=== PATIENT | female | born 1945 | race Caucasian/White ===

== ENCOUNTER 2024-09-11 12:27 | Inpatient (IN) | payer MEDICARE, OTHER ==
[~2024-09-11] VITALS: Ht 157.5 cm; Wt 77.2 kg
[~2024-09-11 12:27] MED LIST: ACET-683 PO; AMLO1TAB24 PO; CALC600T61 PO; COLA100C5 PO; HEAL1TAB6 PO; OXYC-517 PO; PANT40TA29 PO; RAME8TAB2 PO; XARE10TA PO
[2024-09-11] MEDS ORDERED: MAALOX 30 ML SUSP *UDC PO PRN (13:10)
[2024-09-11] MEDS ORDERED: SIMETHICONE 80MG CHEW TAB PO PRN (13:10)
[2024-09-11] MEDS ORDERED: BISACODYL 10 MG SUPP PR PRN (13:10)
[2024-09-11] MEDS ORDERED: **hydrALAZINE HCL** 25 MG TAB PO PRN (13:10)
[2024-09-11] MEDS ORDERED: MOM 30 ML SUSPENSION UDC PO PRN (13:10)
[2024-09-11] MEDS ORDERED: BISACODYL 5 MG TAB PO PRN (13:10)
[2024-09-11] MEDS ORDERED: NS (Normal Saline) 0.9% 1,000 ML IV SCH (13:20)
[2024-09-11 14:45] VITALS: BP 141/65; TEMP 97.8; O2SAT 95
[2024-09-11] MEDS: BISACODYL 5 MG TAB PO ONE (17:12)
[2024-09-11 19:30] VITALS: BP 127/58; TEMP 98; O2SAT 95
[2024-09-11] MEDS: SENNA 8.6 MG TAB PO SCH (21:28)
[2024-09-11] MEDS: DOCUSATE SODIUM 100 MG CAPSULE PO SCH (21:28)
[2024-09-11] MEDS: PANTOPRAZOLE 40MG TAB PO SCH (21:28)
[2024-09-11] MEDS: ACETAMINOPHEN 500 MG TAB PO SCH (21:29)
[2024-09-12 03:55] VITALS: BP 149/72; TEMP 96.9; O2SAT 92
[2024-09-12 04:33] VITALS: BP 137/65; TEMP 97.5; O2SAT 93
[2024-09-12] MEDS: CALCIUM/VITAMIN D 500 MG TAB PO SCH (07:33)
[2024-09-12] MEDS: amLODIPine 5 MG TAB PO SCH (07:33)
[2024-09-12 07:36] LABS: BASO # 0.0 10^3/uL (0.0-0.2); BASO % 0.7 % (0.0-1.0); EOS # 0.1 10^3/uL (0.0-0.5); EOS % 5.2 % (0.0-3.0); LYMPH # 0.4 10^3/uL (1.5-5.0); LYMPH % 14.9 % (24.0-44.0); MONO # 0.2 10^3/uL (0.0-0.8); MONO % 6.0 % (2.0-8.0); NEUTROPHILS # 1.9 10^3/uL (1.5-8.5); NEUTROPHILS % 71.3 % (36.0-66.0); PLATELET COUNT, AUTOMATED 104 10^3/uL (150-450)
[2024-09-12 07:51] LABS: ALT/SGPT 33.0 U/L (7.0-40); AST/SGOT 45.0 U/L (<34); CALCIUM LEVEL 8.8 MG/DL (8.3-10.6); CARBON DIOXIDE LEVEL 26.0 MMOL/L (20-31); CHLORIDE LEVEL 104.0 MMOL/L (98-107); CREATININE FOR GFR 0.77 MG/DL (0.55-1.30); GLOMERULAR FILTRATION RATE 79.4 (>39); POTASSIUM SERUM 3.7 MMOL/L (3.5-5.1); SODIUM LEVEL 142.0 MMOL/L (136-145)
[2024-09-12] MEDS: FLUTICASONE PROPIONATE 0.05% NASAL SPRAY 16 GM NARES SCH (09:00)
[2024-09-12] MEDS ORDERED: RAMELTEON 8 MG TAB PO PRN (10:30)
[2024-09-12] MEDS ORDERED: FLUTICASONE PROPIONATE 0.05% NASAL SPRAY 16 GM NARES ONE (10:30)
[2024-09-12] MEDS: ONDANSETRON 4MG ORAL DISINTEGRATING TAB SL PRN (11:29)
[2024-09-12 12:00] VITALS: BP 134/64; TEMP 98.5; O2SAT 95
[2024-09-12] MEDS: RIVAROXABAN 10MG TAB PO SCH (17:04)
[2024-09-12 19:50] VITALS: BP 130/59; TEMP 97.2; O2SAT 97
[2024-09-13 04:00] VITALS: BP 146/66; TEMP 96.7; O2SAT 95
[2024-09-13 12:00] VITALS: BP 141/70; TEMP 96.4; O2SAT 95
[2024-09-13] MEDS ORDERED: PILL CUTTER 1 EACH XX PRN (15:25)
[2024-09-13 20:00] VITALS: BP 129/60; TEMP 97.3; O2SAT 97
[2024-09-14 04:00] VITALS: BP 130/60; TEMP 97; O2SAT 98
[2024-09-14 12:00] VITALS: BP 139/66; TEMP 97; O2SAT 96
[2024-09-14 20:00] VITALS: BP 153/69; TEMP 97.3; O2SAT 99
[2024-09-14 22:00] VITALS: BP 153/69; TEMP 97.3; O2SAT 99
[2024-09-15 04:00] VITALS: BP 153/72; TEMP 97.1; O2SAT 99
[2024-09-15 06:00] VITALS: BP 153/72; TEMP 97.1; O2SAT 99
[2024-09-15 12:05] VITALS: BP 136/65; TEMP 98; O2SAT 97
[2024-09-15 20:10] VITALS: BP 132/62; TEMP 97.8; O2SAT 98
[2024-09-15] MEDS: RAMELTEON 8 MG TAB PO PRN (21:27)
[2024-09-16 05:28] VITALS: BP 158/69; TEMP 97.9; O2SAT 96
[2024-09-16 12:00] VITALS: BP 147/65; TEMP 97.8; O2SAT 98
[2024-09-16 20:00] VITALS: BP 145/65; TEMP 97.1; O2SAT 93
[2024-09-17 04:00] VITALS: BP 144/65; TEMP 97.6; O2SAT 94
[2024-09-17 12:00] VITALS: BP 137/67; TEMP 97.9; O2SAT 95
[2024-09-17 20:00] VITALS: BP 136/65; TEMP 97.5; O2SAT 95
[2024-09-18 04:00] VITALS: BP 130/62; TEMP 97.2; O2SAT 97
[2024-09-18 12:03] VITALS: BP 124/60; TEMP 97.6; O2SAT 98
[2024-09-18 20:00] VITALS: BP 135/83; TEMP 97.6; O2SAT 95
[2024-09-19 04:00] VITALS: BP 123/60; TEMP 97.1; O2SAT 99
[2024-09-19 12:08] VITALS: BP 135/63; TEMP 98.3; O2SAT 97
[2024-09-19 20:00] VITALS: BP 150/60; TEMP 97.1; O2SAT 96
[2024-09-20 04:00] VITALS: BP 140/65; TEMP 97; O2SAT 97
[2024-09-20] MEDS ORDERED: XARE10TA PO ×2 (11:42→14:18)
[2024-09-20] MEDS ORDERED: PANT40TA29 PO (11:42)
[2024-09-20] MEDS ORDERED: FLUTISP NARES (11:42)
[2024-09-20] MEDS ORDERED: RAME8TAB2 PO (11:42)
[2024-09-20 12:16] VITALS: BP 131/63; TEMP 96.6; O2SAT 96
[2024-09-20] MEDS ORDERED: ELIQ2.5T PO (13:51)
[2024-09-20] MEDS ORDERED: ENOX40IN3 SC (13:55)
[2024-09-20] MEDS: RIVAROXABAN 10MG TAB PO SCH (17:17)
[2024-09-20 20:08] VITALS: BP 129/61; TEMP 96.9; O2SAT 97
[2024-09-20] MEDS ORDERED: ENOXAPARIN 40 MG/0.4 ML SYRINGE (J1650 PER 10MG) SC SCH (21:00)
[2024-09-21 03:50] VITALS: BP 134/64; TEMP 97.1; O2SAT 94
[2024-09-21 07:38] VITALS: BP 128/60
== END 2024-09-21 10:35 | disposition home or self-care (01) | DRG 560 ==
LOC: M PM&R 15:11
PROVIDERS: ADMIT Physical Medicine & Rehabilitation; ATTEND Physical Medicine & Rehabilitation
DX: S82.141D Displaced bicondylar fracture of right tibia, subsequent encounter for closed fracture with routine healing (principal); C85.90 Non-Hodgkin lymphoma, unspecified, unspecified site; D62 Acute posthemorrhagic anemia; S42.202D Unspecified fracture of upper end of left humerus, subsequent encounter for fracture with routine healing; K21.9 Gastro-esophageal reflux disease without esophagitis; D69.6 Thrombocytopenia, unspecified; I10 Essential (primary) hypertension; G47.00 Insomnia, unspecified; R09.81 Nasal congestion; G47.30 Sleep apnea, unspecified; K59.00 Constipation, unspecified; Z74.1 Need for assistance with personal care; Z74.09 Other reduced mobility; Z79.899 Other long term (current) drug therapy; Z88.5 Allergy status to narcotic agent

== ENCOUNTER → 2024-09-29 | Outpatient (CLI) | payer MEDICARE, OTHER ==
[~2024-09-29] MED LIST changes: +ELIQ2.5T PO; +ENOX40IN3 SC; +FLUTISP NARES
== END ==
LOC: M SOG 07:23
PROVIDERS: ATTEND Orthopaedic Surgery
DX: S42.292A Other displaced fracture of upper end of left humerus, initial encounter for closed fracture (principal); S82.122A Displaced fracture of lateral condyle of left tibia, initial encounter for closed fracture; W18.30XA Fall on same level, unspecified, initial encounter; Y92.009 Unspecified place in unspecified non-institutional (private) residence as the place of occurrence of the external cause

== ENCOUNTER → 2024-11-29 | Outpatient (CLI) | payer MEDICARE, OTHER | LOC: M SOG 06:53 | PROVIDERS: ATTEND Orthopaedic Surgery | DX: S42.292D Other displaced fracture of upper end of left humerus, subsequent encounter for fracture with routine healing (principal); S82.122D Displaced fracture of lateral condyle of left tibia, subsequent encounter for closed fracture with routine healing ==